=== PATIENT | male | born 1935 | race Caucasian/White ===

== ENCOUNTER 2016-11-16 12:38 | Emergency (ER) | payer MEDICARE, BC ==
[2016-11-16] MEDS ORDERED: Sodium Chloride 0.9% 10 ML Syringe FLUSH PRN (13:00)
[2016-11-16 13:16] LABS: CHLORIDE,CL 104 mEq/L (98-106); SODIUM,NA 141 mEq/L (136-145)
--- NOTE | 2016-11-16 13:23 | EDM.PDOC ---
ED HPI GENERAL MEDICAL PROBLEM - General Chief Complaint: General Stated Complaint: right arm tingling Time Seen by Provider: 11/16/16 13:00 Source of Information: Reports: Patient, Family History Limitations: Reports: No Limitations - History of Present Illness INITIAL COMMENTS - FREE TEXT/NARRATIVE: States he just doesn't feel well, and his is having some pain in his fingertips to his elbow. Onset: Today Duration: Hour(s): Location: Reports: Upper Extremity, Right Quality: Reports: Other Severity: Moderate Improves with: Reports: Other Worsens with: Reports: None Context: Reports: Other Associated Symptoms: Reports: Malaise, Shortness of Breath, Weakness - Related Data Allergies Allergy/AdvReac Type Severity Reaction Status Date / Time codeine Allergy Depression Verified 11/16/16 13:29 donepezil Allergy Cannot Verified 11/16/16 13:29 Remember donepezil HCl [From Aricept] Allergy Confusion Verified 11/16/16 13:29 meperidine HCl [From Demerol] Allergy Cannot Verified 11/16/16 13:29 Remember morphine Allergy Confusion Verified 11/16/16 13:29 Sulfa (Sulfonamide Allergy Cannot Verified 11/16/16 13:29 Antibiotics) Remember Home Meds: Home Meds Carvedilol [Coreg] 25 mg PO QAM 10/20/13 [History] Docusate Sodium [Colace] 200 mg PO DAILY PRN 10/20/13 [History] Nitroglycerin [Nitrostat] 0.4 mg SL Q5M PRN 10/21/13 [History] [place]-3 Fatty Acids [[place]-3] 2,000 mg PO DAILY 10/21/13 [History] Potassium Chloride [Klor-Con M20] 20 meq PO DAILY 10/21/13 [History] rOPINIRole HCl [Requip] 1 mg PO BEDTIME 10/21/13 [History] Furosemide [Lasix] 20 mg PO DAILY 12/09/13 [History] Budesonide/Formoterol [Symbicort 160-4.5 MCG] 2 puff INH DAILY 08/23/14 [History ] Multivitamin [Daily Vitamin] 1 each PO DAILY 08/23/14 [History] Venlafaxine HCl [Venlafaxine ER] 150 mg PO QAM 08/23/14 [History] Insulin Npl/Insulin Lispro [Humalog Mix 75-25 Kwikpen] 12 units SUBCUT BEDTIME 10/12/15 [History] Insulin Npl/Insulin Lispro [Humalog Mix 75-25 Kwikpen] 24 units SUBCUT ACBREAKFAST 10/12/15 [History] Pantoprazole Sodium 40 mg PO ACBREAKFAST 10/12/15 [History] Warfarin [Coumadin] 6 mg PO BEDTIME 10/13/15 [History] Arginine HCl [l-Arginine] 2,000 mg PO BID 10/15/15 [Rx] Ascorbic Acid [Vitamin C] 1,000 mg PO DAILY tablet 10/15/15 [Rx] Aspirin [Halfprin] 162 mg PO DAILY tab.ec 10/15/15 [Rx] Calcium Carbonate [Tums] 500 mg PO DAILY tab.chew 10/15/15 [Rx] Cyanocobalamin (Vitamin B12) [Vitamin B12] 1,000 mcg IM Q30D sdv 10/15/15 [Rx] Digoxin [Lanoxin] 125 mcg PO DAILY tablet 10/15/15 [Rx] Magnesium Oxide 250 mg PO DAILY tablet 10/15/15 [Rx] Meclizine HCl 25 mg PO ASDIRECTED PRN 01/26/16 [History] Memantine HCl 5 mg PO BID 01/26/16 [History] Carvedilol 1.5 tab PO BEDTIME 03/15/16 [History] Venlafaxine HCl [Venlafaxine ER] 75 mg PO BEDTIME 03/15/16 [History] Venlafaxine HCl [Venlafaxine ER] 225 mg PO BEDTIME 03/15/16 [History] Mometasone/Formoterol [Dulera 200-5 MCG] 0 puff IH DAILY inhaler 03/16/16 [Rx] Past Medical History HEENT History: Reports: Cataract Cardiovascular History: Reports: Bypass, CAD, Heart Failure, High Cholesterol, Hypertension, ID, Pacemaker, Stents Other Cardiovascular History: bypass x2. [address] Respiratory History: Reports: COPD Gastrointestinal History: Reports: Chronic Constipation Genitourinary History: Reports: Urinary Incontinence Musculoskeletal History: Reports: Arthritis, Back Pain, Chronic Neurological History: Reports: TIA, Other (See Below) Other Neuro History: family history of alzheimers. possible dementia Psychiatric History: Reports: Dementia, Depression Endocrine/Metabolic History: Reports: Diabetes, Type II, IDDM - Past Surgical History HEENT Surgical History: Reports: Cataract Surgery Cardiovascular Surgical History: Reports: Coronary Artery Bypass, Coronary Artery Stent GI Surgical History: Reports: Appendectomy, Cholecystectomy, Colonoscopy, Other (See Below) Musculoskeletal Surgical History: Reports: Other (See Below) Social & Family History - Family History Family Medical History: Noncontributory - Tobacco Use Smoking Status *Q: Former Smoker Years of Tobacco use: 20 Packs/Tins Daily: 3 Used Tobacco, but Quit: Yes Month Tobacco Last Used: 1985 Second Hand Smoke Exposure: No - Caffeine Use Caffeine Use: Reports: None - Alcohol Use Days Per Week of Alcohol Use: 1 Number of Drinks Per Day: 1 Total Drinks Per Week: 1 - Recreational Drug Use Recreational Drug Use: No ED ROS GENERAL - Review of Systems Review Of Systems: See Below Constitutional: Reports: Weakness, Fatigue Respiratory: Reports: Shortness of Breath Cardiovascular: Reports: Dyspnea on Exertion Endocrine: Reports: Fatigue GI/Abdominal: Reports: No Symptoms : Reports: No Symptoms Musculoskeletal: Reports: No Symptoms Skin: Reports: No Symptoms Neurological: Reports: Dizziness, Difficulty Walking, Weakness, Gait Disturbance Psychiatric: Reports: No Symptoms Hematologic/Lymphatic: Reports: No Symptoms Immunologic: Reports: No Symptoms ED EXAM, GENERAL - Physical Exam Exam: See Below Exam Limited By: No Limitations General Appearance: Alert Ears: Normal External Exam, Normal Canal Nose: Normal Inspection Throat/Mouth: Normal Inspection Head: Atraumatic, Normocephalic Neck: Normal Inspection, Supple Respiratory/Chest: No Respiratory Distress, Lungs Clear Cardiovascular: Other GI/Abdominal: Normal Bowel Sounds Back Exam: Normal Inspection Extremities: Normal Inspection, Normal Range of Motion, Non-Tender Neurological: Alert, Oriented Psychiatric: Anxious Skin Exam: Warm, Dry, Pallor Lymphatic: No Adenopathy EKG INTERPRETATION EKG Date: 11/16/16 Rhythm: other EKG Interpretation Comments: EKG shows paced rythm. Course - Orders/Labs/Meds Orders: Active Orders 24 hr Category Date Time Status CBC WITH AUTO DIFF [HEME] Stat Lab 11/16/16 13:00 Ordered D-DIMER QUANTITATIVE [COAG] Routine Lab 11/16/16 12:50 Received UA W/MICROSCOPIC [URIN] Stat Lab 11/16/16 13:00 Uncollected Sodium Chloride 0.9% [Saline Flush] Med 11/16/16 13:00 Ordered 10 ml FLUSH ASDIRECTED PRN Saline Lock Insert [OM.PC] Routine Oth 11/16/16 13:00 Ordered EKG 12 Lead [EK] Routine Ther 11/16/16 13:00 Ordered Medication Orders Sodium Chloride (Saline Flush) 10 ml FLUSH ASDIRECTED PRN PRN Reason: Keep Vein Open Labs: Laboratory Tests 11/16/16 11/16/16 Range/Units 12:50 12:50 PT 35.7 H (9.7-12.3) SEC INR 3.19 H (0.92-1.18) Sodium 141 (136-145) mEq/L Potassium 4.3 (3.5-5.0) mEq/L Chloride 104 (98-106) mEq/L Carbon Dioxide 31 (21-32) mmol/L BUN 26 H (7-18) mg/dL Creatinine 1.3 (0.7-1.3) mg/dL Est Cr Clr Drug Dosing TNP Estimated GFR (MDRD) 53 L (>=60) mL/min Glucose 219 H D (75-99) mg/dL Calcium 9.1 (8.4-10.1) mg/dL Total Bilirubin 0.6 (0.0-1.0) mg/dL AST 40 H (15-37) U/L ALT 48 (12-78) U/L Alkaline Phosphatase 130 H (46-116) U/L Troponin I 0.021 (0.00-0.06) ng/mL Total Protein 6.9 (6.4-8.2) g/dL Albumin 3.4 (3.4-5.0) g/dL Meds: Medications Generic Name Dose Route Start Last Admin Trade Name Freq PRN Reason Stop Dose Admin Sodium Chloride 10 ml 11/16/16 13:00 Saline Flush FLUSH ASDIRECTED PRN Keep Vein Open Departure - Departure Time of Disposition: 13:37 (Will D/C with instructions to follow up with his primary care doctor Friday) Disposition: Home, Self-Care 01 Condition: good Clinical Impression: Diabetes mellitus type 2, 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, Fatigue, Chronic pain - Discharge Information - My Orders Last 24 Hours: My Active Orders 11/16/16 12:50 D-DIMER QUANTITATIVE [COAG] Routine 11/16/16 13:00 CBC WITH AUTO DIFF [HEME] Stat UA W/MICROSCOPIC [URIN] Stat Sodium Chloride 0.9% [Saline Flush] 10 ml FLUSH ASDIRECTED PRN Saline Lock Insert [OM.PC] Routine EKG 12 Lead [EK] Routine - Assessment/Plan Last 24 Hours: My Active Orders 11/16/16 12:50 D-DIMER QUANTITATIVE [COAG] Routine 11/16/16 13:00 CBC WITH AUTO DIFF [HEME] Stat UA W/MICROSCOPIC [URIN] Stat Sodium Chloride 0.9% [Saline Flush] 10 ml FLUSH ASDIRECTED PRN Saline Lock Insert [OM.PC] Routine EKG 12 Lead [EK] Routine
[2016-11-16 13:32] VITALS: BP 144/76
== END 2016-11-16 14:06 | disposition home or self-care (01) ==
LOC: CC.ED 12:38
DX: E11.610 Type 2 diabetes mellitus with diabetic neuropathic arthropathy (principal); G89.29 Other chronic pain; I25.10 Atherosclerotic heart disease of native coronary artery without angina pectoris; E78.00 Pure hypercholesterolemia, unspecified; I11.0 Hypertensive heart disease with heart failure; I50.9 Heart failure, unspecified; J44.9 Chronic obstructive pulmonary disease, unspecified; F32.9 Major depressive disorder, single episode, unspecified; Z87.891 Personal history of nicotine dependence
CPT/HCPCS: 36415; 80053; 81001; 84484; 85025; 85379; 85610; 93005; 93010; 99284

== ENCOUNTER 2017-07-01 14:36 | Inpatient (IN) | payer MEDICARE, BC ==
[2017-07-01] MEDS ORDERED: Sodium Chloride 0.9% 10 ML Syringe FLUSH PRN (15:49)
[2017-07-01] MEDS ORDERED: Acetaminophen 325 MG Tab PO PRN (15:49)
[2017-07-01] MEDS ORDERED: Temazepam 15 MG Cap PO PRN (15:49)
[2017-07-01] MEDS ORDERED: Docusate Sodium 100 MG Cap PO PRN (15:53)
[2017-07-01] MEDS ORDERED: Furosemide 40 MG/4 ML VIAL IVPUSH ONE (15:57)
[2017-07-01] MEDS ORDERED: Pantoprazole 40 MG Vial IVPUSH SCH (16:00)
[2017-07-01] MEDS ORDERED: WARFARIN 6 MG PO SCH (16:00)
[2017-07-01 16:31] LABS: CHLORIDE,CL 103 mEq/L (98-106); SODIUM,NA 139 mEq/L (136-145)
[2017-07-01] MEDS ORDERED: Formoterol/Mometasone 200-5 MCG 8.8 GM Inhaler IH SCH (20:00)
[2017-07-01] MEDS: Memantine 10 MG Tab PO SCH (20:07)
[2017-07-01] MEDS: Carvedilol 12.5 MG Tab PO SCH (20:07)
[2017-07-01] MEDS: rOPINIRole 1 MG Tab PO SCH (20:08)
[2017-07-01] MEDS: Venlafaxine 75 MG Cap.ER PO SCH (20:08)
[2017-07-01] MEDS: Insuln Aspart Prot/Insulin Aspart 100 Units/ML 3 ML FlexPen SUBCUT SCH (20:55)
[2017-07-02] MEDS ORDERED: Digoxin 125 MCG Tab PO SCH (08:00)
[2017-07-02] MEDS: Aspirin 81 MG Tab.EC PO SCH (09:00)
[2017-07-02] MEDS: Memantine 10 MG Tab PO SCH ×2 (09:00→19:58)
[2017-07-02] MEDS: Carvedilol 12.5 MG Tab PO SCH ×2 (09:01→19:57)
[2017-07-02] MEDS: Potassium Chloride 10 MEQ Tab.ER PO SCH (09:01)
[2017-07-02] MEDS: Venlafaxine 75 MG Cap.ER PO SCH ×2 (09:02→19:58)
[2017-07-02] MEDS: Formoterol/Mometasone 200-5 MCG 8.8 GM Inhaler IH SCH ×2 (09:06→19:56)
[2017-07-02] MEDS: Insuln Aspart Prot/Insulin Aspart 100 Units/ML 3 ML FlexPen SUBCUT SCH ×2 (09:46→20:29)
[2017-07-02] MEDS: Furosemide 20 MG/2 ML VIAL IVPUSH SCH ×2 (10:35→19:51)
[2017-07-02] MEDS: cefTRIAXone 1 GM Vial IVPUSH SCH (10:36)
[2017-07-02] MEDS ORDERED: Non-Formulary Medication 1 Each (Warfarin Sodium 4 MG) PO SCH (15:53)
[2017-07-02] MEDS ORDERED: Furosemide 20 MG/2 ML VIAL IVPUSH SCH (16:00)
[2017-07-02] MEDS: rOPINIRole 1 MG Tab PO SCH (19:59)
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
[2017-07-03] MEDS: Furosemide 20 MG/2 ML VIAL IVPUSH SCH ×2 (08:33→17:55)
[2017-07-03] MEDS: Insuln Aspart Prot/Insulin Aspart 100 Units/ML 3 ML FlexPen SUBCUT SCH (08:34)
[2017-07-03] MEDS: Potassium Chloride 10 MEQ Tab.ER PO SCH (08:35)
[2017-07-03] MEDS: Memantine 10 MG Tab PO SCH ×2 (08:35→20:24)
[2017-07-03] MEDS: Carvedilol 12.5 MG Tab PO SCH ×2 (08:35→20:22)
[2017-07-03] MEDS: Venlafaxine 75 MG Cap.ER PO SCH ×2 (08:35→20:24)
[2017-07-03] MEDS: Aspirin 81 MG Tab.EC PO SCH (08:36)
[2017-07-03] MEDS: Formoterol/Mometasone 200-5 MCG 8.8 GM Inhaler IH SCH ×2 (08:43→20:23)
[2017-07-03] MEDS: cefTRIAXone 1 GM Vial IVPUSH SCH (10:47)
[2017-07-03] MEDS: Ampicillin 1 GM in Sodium Chloride 0.9% 50 ML IV SCH ×2 (15:41→20:28)
[2017-07-03] MEDS ORDERED: Insuln Aspart Prot/Insulin Aspart 100 Units/ML 3 ML FlexPen SUBCUT SCH (17:00)
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
[2017-07-03] MEDS: rOPINIRole 1 MG Tab PO SCH (20:24)
[2017-07-04] MEDS: Ampicillin 1 GM in Sodium Chloride 0.9% 50 ML IV SCH ×2 (04:33→09:27)
--- NOTE | 2017-07-04 07:24 | OR ---
DATE OF OPERATION: 07/03/2017 PREOPERATIVE DIAGNOSIS: ASCITES SECONDARY TO CONGESTIVE HEART FAILURE, CIRRHOSIS. POSTOPERATIVE DIAGNOSIS: ASCITES SECONDARY TO CONGESTIVE HEART FAILURE, CIRRHOSIS. SURGEON: Allen Simpson MD PROCEDURE: DIAGNOSTIC AND THERAPEUTIC PARACENTESIS. ANESTHESIA: Local. COMPLICATIONS: None. SPECIMEN: 2.6 L of serosanguineous ascitic fluid. FINDINGS: Successful diagnostic and therapeutic paracentesis. INDICATIONS: The patient has had long-standing CHF. He has been having increase in abdominal girth and constipation. Seen [place] multiple times for this. I saw him yesterday in the clinic, admitted him to the hospital for large volume ascites, and abdominal pain. We elected to proceed with a diagnostic and therapeutic tap. DESCRIPTION OF PROCEDURE: The patient was placed in a supine position with the head of the bed elevated. Ultrasound guidance was used to localize a large fluid pocket in the right guttural area. We did look all throughout the abdomen; the left side of the abdomen was unacceptable due to the presence of bowel. The area in the right guttural area was prepped and draped in usual fashion. 1% lidocaine with epinephrine was used for local anesthesia and infiltrated down into the peritoneal cavity and ascitic fluid was easily withdrawn. A small incision was made with an 11 blade scalpel. A thready catheter was placed and using Z technique advanced into the peritoneal cavity without complication. The catheter was advanced about a centimeter. The needle was removed and catheter was hooked up to suction tubing, 2.6 L of serosanguineous ascitic fluid was removed without any complication. The catheter was withdrawn in usual fashion. A pressure dressing applied. The patient tolerated the procedure well. Fluid was sent for routine analysis including culture, cell count, diff, cytology, LDH, protein. DAY/MISBAH /[id number]
[2017-07-04 08:10] VITALS: BP 109/68
[2017-07-04] MEDS: Potassium Chloride 10 MEQ Tab.ER PO SCH (08:26)
[2017-07-04] MEDS: Aspirin 81 MG Tab.EC PO SCH (08:27)
[2017-07-04] MEDS: Carvedilol 12.5 MG Tab PO SCH (08:27)
[2017-07-04] MEDS: Venlafaxine 75 MG Cap.ER PO SCH (08:28)
[2017-07-04] MEDS: Furosemide 20 MG/2 ML VIAL IVPUSH SCH (08:29)
[2017-07-04] MEDS: Memantine 10 MG Tab PO SCH (08:29)
[2017-07-04] MEDS: Formoterol/Mometasone 200-5 MCG 8.8 GM Inhaler IH SCH (08:30)
--- NOTE | 2017-07-06 20:59 | PCM.DCSUM1 ---
Discharge Summary - Hospital Course Free Text/Narrative:: Patient admitted from clinic with CHF and abdominal pain. Had been experiencing more bloating, abdominal distention. Labs on admit showed a WBC of 4.0, Hemoglobin of 9.7 which is quite chronic for him, normal digoxin level. Given dose of IV Lasix. Ultrasound of abdomen ordered. - Discharge Data Discharge Date: 07/04/17 Discharge Disposition: DC/Tfer W/I Hosp To [facility] Condition: Fair - Discharge Diagnosis/Problem(s) (1) Ascites SNOMED Code(s): 127904505 ICD Code: R18.8 - OTHER ASCITES Status: Acute Priority: High Qualifiers: Ascites type: other type Qualified Code(s): R18.8 - Other ascites (2) CHF, Congestive heart failure SNOMED Code(s): 14509283 ICD Code: I50.9 - HEART FAILURE, UNSPECIFIED Status: Acute Priority: High (3) Confusion SNOMED Code(s): 090866598 ICD Code: R41.0 - DISORIENTATION, UNSPECIFIED Status: Chronic Priority: High - Patient Summary/Data Complications: none Hospital Course: Patient admitted for CHF and abdominal pain. WBC and CRP have remained stable, hemoglobin stable. Ultrasound was done and showed significant ascitis related to CHF and cirrhosis of the liver. Paracentesis was done per Dr. Simpson once INR was more stabilized as was 3.7 on admit. Patient's coumadin was held, was given Vitamin K 1 mg. Patient ProBNP was 6028, given IV Lasix twice per day. Lung sounds have remained diminished with fine crackles. No edema by discharge. Patient not currently on an Darrion Inhibitor as been placed on Coreg for his CHF and when taking with Lisinopril did suffer from orthostatic hypotension and would become lightheaded. Not started at this time as a result of his chronic history. Patient did have issues with increased confusion at times but reported to have concerns at home as well. Family consulted with web content & social media manager as adult protective services had been called prior to admission, see social service note. Family requesting jail placement as a result of the confusion and concerns with at home. - Discharge Plan Home Medications: Home Meds Carvedilol [Coreg] 25 mg PO QAM 10/20/13 [History] Docusate Sodium [Colace] 200 mg PO DAILY PRN 10/20/13 [History] Nitroglycerin [Nitrostat] 0.4 mg SL Q5M PRN 10/21/13 [History] [place]-3 Fatty Acids [[place]-3] 2,000 mg PO DAILY 10/21/13 [History] Potassium Chloride [Klor-Con M20] 10 meq PO DAILY 10/21/13 [History] rOPINIRole HCl [Requip] 1 mg PO BEDTIME 10/21/13 [History] Furosemide [Lasix] 60 mg PO DAILY 12/09/13 [History] Budesonide/Formoterol [Symbicort 160-4.5 MCG] 2 puff INH BID 08/23/14 [History] Multivitamin [Daily Vitamin] 1 each PO DAILY 08/23/14 [History] Venlafaxine HCl [Venlafaxine ER] 150 mg PO QAM 08/23/14 [History] Insulin Npl/Insulin Lispro [Humalog Mix 75-25 Kwikpen] 12 units SUBCUT BEDTIME 10/12/15 [History] Insulin Npl/Insulin Lispro [Humalog Mix 75-25 Kwikpen] 24 units SUBCUT ACBREAKFAST 10/12/15 [History] Pantoprazole Sodium 40 mg PO ACBREAKFAST 10/12/15 [History] Warfarin [Coumadin] 6 mg PO SUTUTHFRSA 10/13/15 [History] Ascorbic Acid [Vitamin C] 1,000 mg PO DAILY tablet 10/15/15 [Rx] Aspirin [Halfprin] 162 mg PO DAILY tab.ec 10/15/15 [Rx] Cyanocobalamin (Vitamin B12) [Vitamin B12] 1,000 mcg IM Q30D sdv 10/15/15 [Rx] Magnesium Oxide 250 mg PO DAILY tablet 10/15/15 [Rx] Meclizine HCl 25 mg PO ASDIRECTED PRN 01/26/16 [History] Memantine HCl 5 mg PO BID 01/26/16 [History] Venlafaxine HCl [Venlafaxine ER] 75 mg PO BEDTIME 03/15/16 [History] Mometasone/Formoterol [Dulera 200-5 MCG] 2 puff IH DAILY 11/16/16 [History] Warfarin Sodium 4 mg PO MOWE 11/16/16 [History] Arginine HCl [l-Arginine] 2 tab PO BID 07/01/17 [History] Calcium Carbonate [Calcium] 500 mg PO DAILY 07/01/17 [History] Carvedilol 37.5 mg PO BEDTIME 07/01/17 [History] Digoxin [Lanoxin] 62.5 mcg PO DAILY 07/01/17 [History] - Discharge Summary/Plan Comment DC Time >30 min.: Yes Discharge Summary/Plan Comment: Patient transferred to swing bed for ongoing IV Lasix and awaiting jail as is a vulnerable adult with his confusion and caregiver concerns. Time with patient 10 minutes Time for transfer orders 10 minutes Time for documentation and chart review 15 minutes - General Info Date of Service: 07/06/17 Admission Dx/Problem (Free Text: Abdominal Pain Acute on Chronic systolic CHF Functional Status: Reports: Pain Controlled, Tolerating Diet, Ambulating - Review of Systems General: Reports: Fatigue. Denies: Fever, Weakness HEENT: Reports: No Symptoms Pulmonary: Reports: Shortness of Breath. Denies: Cough Cardiovascular: Denies: Chest Pain, Edema, Lightheadedness Gastrointestinal: Reports: Abdominal Pain. Denies: Nausea, Vomiting Genitourinary: Reports: No Symptoms Musculoskeletal: Reports: Back Pain Neurological: Reports: Confusion Psychiatric: Reports: Confusion - Patient Data Vitals - Most Recent: Last Vital Signs Temp 97.4 F 07/04/17 08:00 Pulse 76 07/04/17 08:27 Resp 19 07/04/17 08:00 BP 109/68 07/04/17 08:27 Pulse Ox 98 07/04/17 08:00 Weight - Most Recent: 187 lb 4.8 oz Med Orders - Current: Current Medications Discontinued Medications Acetaminophen (Tylenol) 650 mg PO Q4H PRN PRN Reason: Pain (Mild 1-3)/fever Aspirin (Halfprin) 162 mg PO DAILY [facility] Last Admin: 07/04/17 08:27 Dose: 162 mg Carvedilol (Coreg) 25 mg PO BEDTIME [facility] Last Admin: 07/03/17 20:22 Dose: 25 mg Carvedilol (Coreg) 25 mg PO QAM [facility] Last Admin: 07/04/17 08:27 Dose: 25 mg Ceftriaxone Sodium (Rocephin) 1 gm IVPUSH Q24H [facility] Last Admin: 07/03/17 10:47 Dose: 1 gm Digoxin (Lanoxin) 62.5 mcg PO DAILY [facility] Docusate Sodium (Colace) 200 mg PO DAILY PRN PRN Reason: Constipation Last Admin: 07/03/17 20:24 Dose: 200 mg Furosemide (Lasix) 40 mg IVPUSH ONETIME ONE Stop: 07/01/17 15:58 Last Admin: 07/01/17 17:13 Dose: 40 mg Furosemide (Lasix) 40 mg IVPUSH BID [facility] Furosemide (Lasix) 40 mg IVPUSH BID [facility] Last Admin: 07/03/17 08:33 Dose: 40 mg Furosemide (Lasix) 40 mg IVPUSH BID@0800,1600 [facility] Last Admin: 07/04/17 08:29 Dose: 40 mg Ampicillin Sodium 1 gm/ Sodium (Chloride) 50 mls @ 100 mls/hr IV Q6H [facility] Last Admin: 07/04/17 09:27 Dose: 100 mls/hr Insulin Aspart (Novolog Mix 70-30) 12 unit SUBCUT BEDTIME [facility] Last Admin: 07/02/17 20:29 Dose: 12 unit Insulin Aspart (Novolog Mix 70-30) 24 unit SUBCUT ACBREAKFAST [facility] Last Admin: 07/03/17 08:34 Dose: 24 unit Insulin Aspart (Novolog Mix 70-30) 12 unit SUBCUT ACDINNER [facility] Magnesium Oxide (Magnesium Oxide) 250 mg PO DAILY [facility] Last Admin: 07/04/17 08:27 Dose: 250 mg Memantine (Namenda) 5 mg PO BID [facility] Last Admin: 07/04/17 08:29 Dose: 5 mg Mometasone Furoate/Formoterol Fumar (Dulera 200-5 Mcg) 2 puff IH BID [facility] Mometasone Furoate/Formoterol Fumar (Dulera 200-5 Mcg) 2 puff IH BID [facility] Last Admin: 07/04/17 08:30 Dose: 1 inh Non-Formulary Medication (Warfarin) 6 mg PO SUTUTHFRSA [facility] Last Admin: 07/02/17 13:46 Dose: Not Given Non-Formulary Medication (Warfarin Sodium) 4 mg PO MOWE [facility] Pantoprazole Sodium (Protonix Iv) 40 mg IVPUSH ONETIME [facility] Phytonadione (Aquamephyton) 1 mg IM NOW ONE Stop: 07/02/17 09:29 Last Admin: 07/02/17 17:00 Dose: 1 mg Phytonadione (Aquamephyton) Confirm Administered Dose 10 mg .ROUTE .STK-MED ONE Stop: 07/02/17 17:11 Last Admin: 07/02/17 17:00 Dose: Not Given Potassium Chloride (Klor-Con 10) 10 meq PO DAILY [facility] Last Admin: 07/04/17 08:26 Dose: 10 meq Ropinirole HCl (Requip) 1 mg PO BEDTIME [facility] Last Admin: 07/03/17 20:24 Dose: 1 mg Sodium Chloride (Saline Flush) 10 ml FLUSH ASDIRECTED PRN PRN Reason: Keep Vein Open Temazepam (Restoril) 15 mg PO BEDTIME PRN PRN Reason: Sleep Last Admin: 07/03/17 20:24 Dose: 15 mg Venlafaxine HCl (Effexor Xr) 75 mg PO BEDTIME [facility] Last Admin: 07/03/17 20:24 Dose: 75 mg Venlafaxine HCl (Effexor Xr) 150 mg PO QAM [facility] Last Admin: 07/04/17 08:28 Dose: 150 mg - Exam General: Reports: Alert, Oriented (person and place this am) HEENT: Reports: Mucous Membr. Moist/[place] Neck: Reports: Supple Lungs: Reports: Normal Respiratory Effort, Decreased Breath Sounds, Crackles Cardiovascular: Reports: Irregular Rhythm GI/Abdominal Exam: Normal Bowel Sounds, Soft, Non-Tender Extremities: Normal Inspection, No Pedal Edema Skin: Reports: Warm, Dry Neurological: Reports: No New Focal Deficit *Q Meaningful Use (DIS) - VTE *Q VTE Criteria *Q: - Stroke *Q Stroke Criteria *Q: - AMI *Q AMI Criteria *Q:
== END 2017-07-04 12:10 | disposition swing bed (61) | DRG 292 ==
LOC: CC.MS 14:36 → UNDOADMIN 14:36 → CC.MS 15:49
PROVIDERS: ADMIT Family Medicine; ATTEND Family Medicine
PROC: 0W9G3ZX Drainage of Peritoneal Cavity, Percutaneous Approach, Diagnostic (ICD-10-PCS; principal; 2017-07-03)
DX: I50.23 Acute on chronic systolic (congestive) heart failure (principal); R18.8 Other ascites; I48.91 Unspecified atrial fibrillation; J44.9 Chronic obstructive pulmonary disease, unspecified; F03.90 Unspecified dementia, unspecified severity, without behavioral disturbance, psychotic disturbance, mood disturbance, and anxiety; E11.9 Type 2 diabetes mellitus without complications; R63.5 Abnormal weight gain; R41.0 Disorientation, unspecified; K74.60 Unspecified cirrhosis of liver; G89.29 Other chronic pain; H81.10 Benign paroxysmal vertigo, unspecified ear; G62.9 Polyneuropathy, unspecified; G25.81 Restless legs syndrome; G47.30 Sleep apnea, unspecified; Z86.73 Personal history of transient ischemic attack (TIA), and cerebral infarction without residual deficits; E53.8 Deficiency of other specified B group vitamins; Z88.8 Allergy status to other drugs, medicaments and biological substances; Z79.01 Long term (current) use of anticoagulants; Z79.82 Long term (current) use of aspirin; Z79.4 Long term (current) use of insulin; Z79.899 Other long term (current) drug therapy
CPT/HCPCS: 36415; 49083; 71046; 76700; 80048; 80053; 80162; 81001; 82150; 82962; 83615; 83735; 83880; 84155; 84157; 84484; 85025; 85610; 86140; 87070; 87086; 87088; 87186; 87205; 88112; 88305; 89051; 93005; 93306; A9270-GY; J0290; J0696; J1815-GY; J1940; J3430; J7050

== ENCOUNTER 2017-07-04 12:18 | Inpatient (IN) | payer MEDICARE, BC ==
[2017-07-04] MEDS ORDERED: Sodium Chloride 0.9% 10 ML Syringe FLUSH PRN ×2 (13:25)
[2017-07-04] MEDS ORDERED: Acetaminophen 325 MG Tab PO PRN (13:25)
[2017-07-04] MEDS ORDERED: Pantoprazole 40 MG Vial IVPUSH SCH (13:25)
[2017-07-04] MEDS ORDERED: Docusate Sodium 100 MG Cap PO PRN ×2 (13:25→13:30)
[2017-07-04] MEDS ORDERED: Nitroglycerin 0.4 MG Tab.SL SL PRN (13:30)
[2017-07-04] MEDS ORDERED: Meclizine 12.5 MG Tab PO PRN ×2 (13:30→19:51)
[2017-07-04] MEDS: Ampicillin 1 GM in Sodium Chloride 0.9% 50 ML IV SCH ×2 (14:35→19:56)
[2017-07-04] MEDS: Insuln Aspart Prot/Insulin Aspart 100 Units/ML 3 ML FlexPen SUBCUT SCH (17:38)
[2017-07-04] MEDS: Memantine 10 MG Tab PO SCH (19:57)
[2017-07-04] MEDS: rOPINIRole 1 MG Tab PO SCH (19:57)
[2017-07-04] MEDS: Carvedilol 12.5 MG Tab PO SCH (19:58)
[2017-07-04] MEDS ORDERED: Non-Formulary Medication 1 Each (Ropinirole Hcl [Requip] 1 MG) PO SCH (20:00)
[2017-07-04] MEDS: Formoterol/Mometasone 200-5 MCG 8.8 GM Inhaler IH SCH (20:00)
[2017-07-04] MEDS ORDERED: Non-Formulary Medication 1 Each (Budesonide/Formoterol Fumarate 2 PUFF) INH SCH (20:00)
[2017-07-04] MEDS ORDERED: INSULIN LISPRO PROTAMINE SUBCUT SCH (20:00)
[2017-07-04] MEDS ORDERED: MEMANTINE HCL 5 MG PO SCH (20:00)
[2017-07-04] MEDS ORDERED: CARVEDILOL 37.5 MG PO SCH (20:00)
[2017-07-04] MEDS ORDERED: [UNRECOGNIZED DRUG - OTHER] SUBCUT SCH (20:00)
[2017-07-04] MEDS ORDERED: Venlafaxine 75 MG Cap.ER PO SCH (20:00)
[2017-07-04] MEDS: Venlafaxine 75 MG Cap.ER PO SCH (20:04)
[2017-07-04] MEDS: Temazepam 15 MG Cap PO PRN (20:17)
[2017-07-05] MEDS: Ampicillin 1 GM in Sodium Chloride 0.9% 50 ML IV SCH ×4 (02:15→19:40)
[2017-07-05] MEDS ORDERED: [UNRECOGNIZED DRUG - OTHER] SUBCUT SCH (07:00)
[2017-07-05] MEDS ORDERED: INSULIN LISPRO PROTAMINE SUBCUT SCH (07:00)
[2017-07-05] MEDS: Pantoprazole 40 MG Tab.CR PO SCH (07:29)
[2017-07-05] MEDS: Aspirin 81 MG Tab.EC PO SCH (07:32)
[2017-07-05] MEDS: Venlafaxine 75 MG Cap.ER PO SCH ×2 (07:32→19:43)
[2017-07-05] MEDS: Memantine 10 MG Tab PO SCH ×2 (07:33→19:45)
[2017-07-05] MEDS: Potassium Chloride 10 MEQ Tab.ER PO SCH (07:33)
[2017-07-05] MEDS: Multivitamin Tab PO SCH (07:34)
[2017-07-05] MEDS: Calcium Carbonate 500 MG Tab.Chew PO SCH (07:34)
[2017-07-05] MEDS: Digoxin 125 MCG Tab PO SCH (07:34)
[2017-07-05] MEDS: Furosemide 40 MG/4 ML VIAL IVPUSH SCH (07:35)
[2017-07-05] MEDS: Formoterol/Mometasone 200-5 MCG 8.8 GM Inhaler IH SCH ×2 (07:37→19:47)
[2017-07-05] MEDS: Insuln Aspart Prot/Insulin Aspart 100 Units/ML 3 ML FlexPen SUBCUT SCH ×2 (07:42→17:22)
[2017-07-05] MEDS: Carvedilol 12.5 MG Tab PO SCH ×2 (07:48→19:47)
[2017-07-05] MEDS ORDERED: POTASSIUM CHLORIDE 10 MEQ PO SCH (08:00)
[2017-07-05] MEDS ORDERED: Non-Formulary Medication 1 Each (Warfarin Sodium 4 MG) PO SCH (08:00)
[2017-07-05] MEDS ORDERED: Non-Formulary Medication 1 Each (Carvedilol [Coreg] 25 MG) PO SCH (08:00)
[2017-07-05] MEDS ORDERED: Venlafaxine 75 MG Cap.ER PO SCH (08:00)
[2017-07-05] MEDS ORDERED: Aspirin 81 MG Tab.EC PO SCH (08:00)
[2017-07-05] MEDS ORDERED: Cyanocobalamin (Vitamin B12) 1,000 MCG/ML SDV IM SCH (10:00)
[2017-07-05] MEDS ORDERED: Warfarin 2 MG Tab PO ONE (12:00)
[2017-07-05] MEDS: rOPINIRole 1 MG Tab PO SCH (19:43)
[2017-07-05] MEDS: Temazepam 15 MG Cap PO PRN (21:23)
[2017-07-06] MEDS: Ampicillin 1 GM in Sodium Chloride 0.9% 50 ML IV SCH ×4 (02:00→20:19)
[2017-07-06] MEDS: Furosemide 40 MG/4 ML VIAL IVPUSH SCH (07:33)
[2017-07-06] MEDS: Formoterol/Mometasone 200-5 MCG 8.8 GM Inhaler IH SCH ×2 (07:33→20:22)
[2017-07-06] MEDS: Calcium Carbonate 500 MG Tab.Chew PO SCH (07:34)
[2017-07-06] MEDS: Aspirin 81 MG Tab.EC PO SCH (07:40)
[2017-07-06] MEDS: Potassium Chloride 10 MEQ Tab.ER PO SCH (07:40)
[2017-07-06] MEDS: Venlafaxine 75 MG Cap.ER PO SCH ×2 (07:40→20:20)
[2017-07-06] MEDS: Multivitamin Tab PO SCH (07:41)
[2017-07-06] MEDS: Memantine 10 MG Tab PO SCH ×2 (07:41→20:20)
[2017-07-06] MEDS: Pantoprazole 40 MG Tab.CR PO SCH (07:42)
[2017-07-06] MEDS: Carvedilol 12.5 MG Tab PO SCH ×2 (08:02→20:19)
[2017-07-06] MEDS: Digoxin 125 MCG Tab PO SCH (08:03)
[2017-07-06] MEDS: Insuln Aspart Prot/Insulin Aspart 100 Units/ML 3 ML FlexPen SUBCUT SCH ×2 (08:04→17:29)
[2017-07-06] MEDS ORDERED: Warfarin 2 MG Tab PO ONE (17:02)
[2017-07-06] MEDS: rOPINIRole 1 MG Tab PO SCH (20:20)
[2017-07-06] MEDS: Temazepam 15 MG Cap PO PRN (21:19)
[2017-07-07] MEDS: Ampicillin 1 GM in Sodium Chloride 0.9% 50 ML IV SCH ×2 (02:25→07:55)
[2017-07-07] MEDS: Furosemide 40 MG/4 ML VIAL IVPUSH SCH (07:40)
[2017-07-07] MEDS: Multivitamin Tab PO SCH (07:43)
[2017-07-07] MEDS: Venlafaxine 75 MG Cap.ER PO SCH (07:44)
[2017-07-07] MEDS: Digoxin 125 MCG Tab PO SCH (07:44)
[2017-07-07] MEDS: Aspirin 81 MG Tab.EC PO SCH (07:45)
[2017-07-07] MEDS: Memantine 10 MG Tab PO SCH (07:46)
[2017-07-07] MEDS: Potassium Chloride 10 MEQ Tab.ER PO SCH (07:47)
[2017-07-07] MEDS: Carvedilol 12.5 MG Tab PO SCH (07:48)
[2017-07-07 07:49] VITALS: BP 99/53
[2017-07-07] MEDS: Calcium Carbonate 500 MG Tab.Chew PO SCH (07:51)
[2017-07-07] MEDS: Pantoprazole 40 MG Tab.CR PO SCH (07:51)
[2017-07-07] MEDS: Insuln Aspart Prot/Insulin Aspart 100 Units/ML 3 ML FlexPen SUBCUT SCH (07:52)
[2017-07-07] MEDS: Formoterol/Mometasone 200-5 MCG 8.8 GM Inhaler IH SCH (07:53)
--- NOTE | 2017-07-07 11:16 | PCM.DCSUM1 ---
Discharge Summary - Hospital Course Free Text/Narrative:: Patient admitted from clinic with abdominal pain and CHF. Patient and family had noted progression of abdominal distention over the last few weeks. He was admitted for further work up for this. Initial labs on acute admission showed a WBC of 4.0, hemoglobin of 9.7 but has chronic anemia. ProBNP was found to be over 6000 so IV Lasix was initiated. Ultrasound of abdomen was done with obvious ascites related to cirrhosis of the liver. Patient did have a paracentesis done during his acute stay which did relieve much of his abdominal pressure. Patient remained afebrile. Labs remained stable. Coumadin was held the first 2 days as INR was 3.7, given 1 mg of Vitamin K, now INR subtherapeutic. marketing services coordinator was consulted due to patient's dementia and reports from adult protective services, please see their notes. Decided to transfer to nursing when available. - Discharge Data Discharge Date: 07/07/17 Discharge Disposition: DC/[facility] to [facility] Condition: Fair - Patient Summary/Data Complications: none Hospital Course: Patient was transferred to swing bed for ongoing IV Lasix and await fci as is a vulnerable patient with multiple chronic illnesses and concerns for safety at home. Swing bed stay uneventful over the weekend. Is more clear this am, oriented to person and place and did know this provider today. INR still remains subtherapeutic, has been given 4 mg daily over the last 2 days. Will adjust on Discharge and obtain INR in 3 days. Continue all other meds as at home. - Patient Instructions Diet: Diabetic Diet Activity: As Tolerated - Discharge Plan Prescriptions/Med Rec: Furosemide [Lasix] 40 mg PO BID #60 tablet Warfarin [Coumadin] 4 mg PO SUMOWEFR #30 tab Warfarin [Coumadin] 6 mg PO TUTHSA #30 tab Home Medications: Home Meds Carvedilol [Coreg] 25 mg PO QAM 10/20/13 [History] Docusate Sodium [Colace] 200 mg PO DAILY PRN 10/20/13 [History] Nitroglycerin [Nitrostat] 0.4 mg SL Q5M PRN 10/21/13 [History] [place]-3 Fatty Acids [[place]-3] 2,000 mg PO DAILY 10/21/13 [History] Potassium Chloride [Klor-Con M20] 10 meq PO DAILY 10/21/13 [History] rOPINIRole HCl [Requip] 1 mg PO BEDTIME 10/21/13 [History] Budesonide/Formoterol [Symbicort 160-4.5 MCG] 2 puff INH BID 08/23/14 [History] Multivitamin [Daily Vitamin] 1 each PO DAILY 08/23/14 [History] Venlafaxine HCl [Venlafaxine ER] 150 mg PO QAM 08/23/14 [History] Insulin Npl/Insulin Lispro [Humalog Mix 75-25 Kwikpen] 12 units SUBCUT BEDTIME 10/12/15 [History] Insulin Npl/Insulin Lispro [Humalog Mix 75-25 Kwikpen] 24 units SUBCUT ACBREAKFAST 10/12/15 [History] Pantoprazole Sodium 40 mg PO ACBREAKFAST 10/12/15 [History] Ascorbic Acid [Vitamin C] 1,000 mg PO DAILY tablet 10/15/15 [Rx] Aspirin [Halfprin] 162 mg PO DAILY tab.ec 10/15/15 [Rx] Cyanocobalamin (Vitamin B12) [Vitamin B12] 1,000 mcg IM Q30D sdv 10/15/15 [Rx] Magnesium Oxide 250 mg PO DAILY tablet 10/15/15 [Rx] Memantine HCl 5 mg PO BID 01/26/16 [History] Venlafaxine HCl [Venlafaxine ER] 75 mg PO BEDTIME 03/15/16 [History] Mometasone/Formoterol [Dulera 200-5 MCG] 2 puff IH DAILY 11/16/16 [History] Arginine HCl [l-Arginine] 2 tab PO BID 07/01/17 [History] Calcium Carbonate [Calcium] 500 mg PO DAILY 07/01/17 [History] Carvedilol 37.5 mg PO BEDTIME 07/01/17 [History] Digoxin [Lanoxin] 62.5 mcg PO DAILY 07/01/17 [History] Furosemide [Lasix] 40 mg PO BID #60 tablet 07/07/17 [Rx] Meclizine HCl 25 mg PO Q8H PRN #30 07/07/17 [Rx] Warfarin [Coumadin] 4 mg PO SUMOWEFR #30 tab 07/07/17 [Rx] Warfarin [Coumadin] 6 mg PO TUTHSA #30 tab 07/07/17 [Rx] - Discharge Summary/Plan Comment DC Time >30 min.: Yes Discharge Summary/Plan Comment: Discharge today to the [facility]. Continue Lasix 40 mg BID. Start Lactulose 15 ml BID. Resume all other meds Time with patient 15 minutes Time for orders and transfer paperwork 15 minutes Time for documentation 10 minutes - General Info Date of Service: 07/07/17 Admission Dx/Problem (Free Text: Ascites due to cirrhosis Acute on chronic CHF Dementia Functional Status: Reports: Pain Controlled, Tolerating Diet, Ambulating - Review of Systems General: Reports: Fatigue. Denies: Fever, Weakness HEENT: Reports: No Symptoms Pulmonary: Reports: Shortness of Breath. Denies: Cough, Wheezing Cardiovascular: Denies: Chest Pain, Edema, Lightheadedness Gastrointestinal: Reports: Other (bloating). Denies: Abdominal Pain, Nausea, Vomiting Genitourinary: Reports: No Symptoms Musculoskeletal: Reports: No Symptoms Skin: Reports: No Symptoms - Patient Data Vitals - Most Recent: Last Vital Signs Temp 98.6 F 07/07/17 07:48 Pulse 63 07/07/17 07:48 Resp 20 07/07/17 07:48 BP 99/53 L 07/07/17 07:48 Pulse Ox 96 07/07/17 07:48 Weight - Most Recent: 186 lb 12.8 oz Lab Results - Last 24 hrs: Laboratory Results - last 24 hr 07/06/17 07/06/17 07/06/17 Range/Units 11:40 17:39 20:14 PT (9.7-12.3) SEC INR (0.92-1.18) POC Glucose 121 H 117 H 152 H (75-105) mg/dl 07/07/17 07/07/17 Range/Units 07:00 07:32 PT 14.9 H (9.7-12.3) SEC INR 1.37 H (0.92-1.18) POC Glucose 83 (75-105) mg/dl Med Orders - Current: Current Medications Discontinued Medications Acetaminophen (Tylenol) 650 mg PO Q4H PRN PRN Reason: Pain (Mild 1-3)/fever Aspirin (Halfprin) 162 mg PO DAILY [facility] Aspirin (Halfprin) 162 mg PO DAILY [facility] Last Admin: 07/07/17 07:45 Dose: 162 mg Calcium Carbonate/Glycine (Tums) 500 mg PO DAILY [facility] Last Admin: 07/07/17 07:51 Dose: 500 mg Carvedilol (Coreg) 25 mg PO BEDTIME [facility] Last Admin: 07/06/17 20:19 Dose: 25 mg Carvedilol (Coreg) 25 mg PO QAM [facility] Last Admin: 07/07/17 07:48 Dose: 25 mg Cyanocobalamin (Vitamin B12) 1,000 mcg IM Q30D [facility] Last Admin: 07/05/17 13:43 Dose: Not Given Digoxin (Lanoxin) 62.5 mcg PO DAILY [facility] Last Admin: 07/07/17 07:44 Dose: 62.5 mcg Docusate Sodium (Colace) 200 mg PO DAILY PRN PRN Reason: Constipation Last Admin: 07/05/17 17:29 Dose: 200 mg Docusate Sodium (Colace) 200 mg PO DAILY PRN PRN Reason: Constipation Furosemide (Lasix) 40 mg IVPUSH Q24H [facility] Last Admin: 07/07/17 07:40 Dose: 40 mg Ampicillin Sodium 1 gm/ Sodium (Chloride) 50 mls @ 100 mls/hr IV Q6H [facility] Last Admin: 07/07/17 07:55 Dose: 100 mls/hr Insulin Aspart (Novolog Mix 70-30) 24 unit SUBCUT ACBREAKFAST [facility] Last Admin: 07/07/17 07:52 Dose: 24 units Insulin Aspart (Novolog Mix 70-30) 12 unit SUBCUT ACDINNER [facility] Last Admin: 07/06/17 17:29 Dose: 12 unit Magnesium Oxide (Magnesium Oxide) 250 mg PO DAILY [facility] Last Admin: 07/07/17 07:47 Dose: 250 mg Magnesium Oxide (Magnesium Oxide) 250 mg PO DAILY [facility] Meclizine HCl (Antivert) 25 mg PO ASDIRECTED PRN PRN Reason: Dizziness Meclizine HCl (Antivert) 25 mg PO TID PRN PRN Reason: Dizziness Memantine (Namenda) 5 mg PO BID [facility] Last Admin: 07/07/17 07:46 Dose: 5 mg Mometasone Furoate/Formoterol Fumar (Dulera 200-5 Mcg) 2 puff IH BID [facility] Last Admin: 07/07/17 07:53 Dose: 2 puff Multivitamins/Minerals/Vitamin C (Tab-A-Gia) 1 tab PO DAILY [facility] Last Admin: 07/07/17 07:43 Dose: 1 tab Nitroglycerin (Nitrostat) 0.4 mg SL Q5M PRN PRN Reason: Chest Pain Non-Formulary Medication (Budesonide/Formoterol Fumarate) 2 puff INH BID [facility] Non-Formulary Medication (Carvedilol [Carvedilol]) 37.5 mg PO BEDTIME [facility] Non-Formulary Medication (Carvedilol [Coreg]) 25 mg PO QAM [facility] Non-Formulary Medication (Insulin Lispro Prot/Lispro) 12 units SUBCUT BEDTIME [facility] Non-Formulary Medication (Insulin Lispro Prot/Lispro) 24 units SUBCUT ACBREAKFAST [facility] Non-Formulary Medication (Memantine Hcl [Memantine Hcl]) 5 mg PO BID [facility] Non-Formulary Medication (Potassium Chloride [Klor-Con M20]) 10 meq PO DAILY [facility] Non-Formulary Medication (Ropinirole Hcl [Requip]) 1 mg PO BEDTIME [facility] Non-Formulary Medication (Warfarin Sodium) 4 mg PO DAILY [facility] Last Admin: 07/05/17 11:54 Dose: Not Given Pantoprazole Sodium (Protonix Iv) 40 mg IVPUSH ONETIME [facility] Pantoprazole Sodium (Protonix) 40 mg PO ACBREAKFAST [facility] Last Admin: 07/07/17 07:51 Dose: 40 mg Potassium Chloride (Klor-Con 10) 10 meq PO DAILY [facility] Last Admin: 07/07/17 07:47 Dose: 10 meq Ropinirole HCl (Requip) 1 mg PO BEDTIME [facility] Last Admin: 07/06/17 20:20 Dose: 1 mg Sodium Chloride (Saline Flush) 10 ml FLUSH ASDIRECTED PRN PRN Reason: Keep Vein Open Sodium Chloride (Saline Flush) 10 ml FLUSH ASDIRECTED PRN PRN Reason: Keep Vein Open Temazepam (Restoril) 15 mg PO BEDTIME PRN PRN Reason: Sleep Last Admin: 07/06/17 21:19 Dose: 15 mg Venlafaxine HCl (Effexor Xr) 75 mg PO BEDTIME [facility] Venlafaxine HCl (Effexor Xr) 150 mg PO QAM [facility] Venlafaxine HCl (Effexor Xr) 75 mg PO BEDTIME [facility] Last Admin: 07/06/17 20:20 Dose: 75 mg Venlafaxine HCl (Effexor Xr) 150 mg PO QAM [facility] Last Admin: 07/07/17 07:44 Dose: 150 mg Warfarin Sodium (Coumadin) 4 mg PO ONETIME ONE Stop: 07/05/17 12:01 Last Admin: 07/05/17 12:29 Dose: 4 mg Warfarin Sodium (Coumadin) 4 mg PO ONETIME ONE Stop: 07/06/17 17:03 Last Admin: 07/06/17 17:26 Dose: 4 mg - Exam General: Reports: Alert, Oriented (person and place), Cooperative HEENT: Reports: Mucous Membr. Moist/[place] Neck: Reports: Supple Lungs: Reports: Clear to Auscultation, Normal Respiratory Effort Cardiovascular: Reports: Regular Rate, Regular Rhythm GI/Abdominal Exam: Normal Bowel Sounds, Soft, Distended (mildly distended but soft) Extremities: Normal Inspection, No Pedal Edema Skin: Reports: Warm, Dry Neurological: Reports: No New Focal Deficit *Q Meaningful Use (DIS) - VTE *Q VTE Criteria *Q: - Stroke *Q Stroke Criteria *Q: - AMI *Q AMI Criteria *Q:
== END 2017-07-07 09:20 | DRG 292 ==
LOC: UNDOADMIN 12:18 → CC.MS 12:18
PROVIDERS: ADMIT Family Medicine; ATTEND Family Medicine
DX: I50.23 Acute on chronic systolic (congestive) heart failure (principal); R18.8 Other ascites; D68.8 Other specified coagulation defects; E11.9 Type 2 diabetes mellitus without complications; Z79.4 Long term (current) use of insulin; I48.91 Unspecified atrial fibrillation; J44.9 Chronic obstructive pulmonary disease, unspecified; I25.10 Atherosclerotic heart disease of native coronary artery without angina pectoris; F03.90 Unspecified dementia, unspecified severity, without behavioral disturbance, psychotic disturbance, mood disturbance, and anxiety; F32.9 Major depressive disorder, single episode, unspecified; G25.81 Restless legs syndrome; E53.8 Deficiency of other specified B group vitamins; R41.0 Disorientation, unspecified; Z79.82 Long term (current) use of aspirin; Z79.01 Long term (current) use of anticoagulants; K74.60 Unspecified cirrhosis of liver
CPT/HCPCS: 36415; 82962; 85610; A9270-GY; J0290; J1940; J7050